=== PATIENT | male | born 1980 | race Caucasian/White ===

== ENCOUNTER 2020-10-29 11:54 | Emergency (ER) | payer OTHER ==
[2020-10-29 12:44] LABS: BASOPHIL 0.6 % (0-2); EOSINOPHIL 4.1 % (0-5); HGB 14.7 g/dl (13.2-18.0); LYMPHOCYTE 25.7 % (15-48); MCH 31.4 pg (25.0-31.0); MCHC 32.7 g/dL (32.0-36.0); MCV 96.2 fL (78.0-100.0); MONOCYTE 7.8 % (0-12); MPV 12.3 fL (6.0-9.5); NEUTROPHIL 61.4 % (41-80); NRBC 0; PLT 176 K/uL (150-400); RBC 4.68 M/uL (4.70-6.00); RDW 13.2 % (11.5-14.0)
[2020-10-29 12:55] LABS: INR 1.03 (0.9-1.2); PROTHROMBIN TIME 12.9 SECONDS (11.8-13.4); PTT 24.8 SECONDS (24.4-34.7)
[2020-10-29 13:19] LABS: ALBUMIN 3.6 g/dL (3.4-5.0); BILIRUBIN - TOTAL 0.5 mg/dL (0.2-1.0); BUN/CREAT RATIO (CALC) 11.6 RATIO; CREATININE 1.12 mg/dL (0.67-1.17); GLOBULIN (CALCULATION) 3.5 g/dL; POTASSIUM 4.3 mmol/L (3.5-5.1); TOTAL PROTEIN 7.1 g/dL (6.4-8.2)
[2020-10-29] MEDS ORDERED: CYCLOBENZAPRINE10 MG PO (16:37)
== END 2020-10-29 17:20 | disposition home or self-care (01) ==
LOC: FER 11:54
PROVIDERS: Emergency Medicine
DX: S30.1XXA Contusion of abdominal wall, initial encounter (principal); Z88.1 Allergy status to other antibiotic agents; Z88.2 Allergy status to sulfonamides; V49.40XA Driver injured in collision with unspecified motor vehicles in traffic accident, initial encounter; Y92.410 Unspecified street and highway as the place of occurrence of the external cause
CPT/HCPCS: 36415; 71046; 80053; 85025; 85610; 85730; J1100; J7030; Q9967